=== PATIENT | female | born 1990 | race Caucasian/White ===

== ENCOUNTER 2016-07-22 06:22 | Inpatient (IN) | payer OTHER ==
[2016-07-22] MEDS ORDERED: ceFOXitin 2 GM IVPREMIX* 2 GM/50 ML BAG IVPB ONE (06:58)
[2016-07-22 07:34] LABS: Hematocrit 39 % (35-47); Mean Corpuscular HGB Conc 34 g/dl (31-36); Mean Corpuscular Hemoglobin 30 pg (27-31); Mean Corpuscular Volume 88 fL (80-97); Mean Platelet Volume 9 um3 (7.4-10.4); Red Blood Count 4.39 10^6/ul (4.0-5.4); Red Cell Distribution Width 13 % (10.5-15); White Blood Count 9.5 10^3/ul (3.5-10.8)
[2016-07-22] MEDS ORDERED: Phenylephrine IV* 40 MCG/ML 10 ML SYRINGE ONE (07:57)
[2016-07-22] MEDS ORDERED: Sodium Citrate/Citric Acid* 15 ML UDC ONE (07:58)
[2016-07-22] MEDS ORDERED: DiMENhydriNATE IV* 50 MG/ML VIAL IV PUSH PRN ×2 (08:00→12:08)
[2016-07-22] MEDS ORDERED: fentaNYL* 50 MCG/ML 2 ML VIAL (100 MCG VIAL) IV PRN (08:00)
[2016-07-22] MEDS ORDERED: Sodium Citrate/Citric Acid* 15 ML UDC PO ONE (08:00)
[2016-07-22] MEDS ORDERED: Morphine PF AMP (0.5MG/ML)* 5 MG/10 ML AMP ONE (08:03)
[2016-07-22] MEDS ORDERED: OXYTOCIN* 10 UNITS/ML 1 ML VIAL ONE ×2 (08:05→09:18)
[2016-07-22] MEDS ORDERED: Ondansetron INJ* 2 MG/ML VIAL ONE (08:05)
[2016-07-22] MEDS ORDERED: diPHENhydraMINE IV* 50 MG/ML 1 ml VIAL (BENADRYL) IV PRN (09:11)
[2016-07-22] MEDS ORDERED: Ondansetron INJ* 2 MG/ML VIAL IV PRN (09:11)
[2016-07-22] MEDS ORDERED: oxyCODONE/Acetamin 5/325 MG* TAB PO PRN (09:11)
[2016-07-22] MEDS ORDERED: Naloxone* 0.4 MG/ML 1 ML VIAL IV PRN (09:11)
[2016-07-22] MEDS ORDERED: Zolpidem TAB* 5 MG PO PRN (10:51)
[2016-07-22] MEDS ORDERED: Glycerin ADULT SUPP PR PRN (10:51)
[2016-07-22] MEDS ORDERED: Dibucaine 1% 28.35 GM TUBE PR PRN (10:51)
[2016-07-22] MEDS ORDERED: Witch Hazel PAD* JAR TOPICAL PRN (10:51)
[2016-07-22] MEDS: Ketorolac INJ* 30 MG/ML 1 ML VIAL IV PRN ×3 (11:15→23:32)
[2016-07-22] MEDS: Simethicone TAB* 80 MG TAB.CHEW PO SCH ×3 (12:30→20:20)
[2016-07-22] MEDS ORDERED: Scopolamine 1.5 mg* PATCH TRANSDERM SCH (13:00)
[2016-07-22] MEDS: Docusate CAP* 100 MG PO SCH ×2 (14:36→20:20)
[2016-07-22] MEDS ORDERED: Varicella Virus Vaccine Live* 0.5 ML VIAL SUBCUT ONE (16:00)
[2016-07-23] MEDS ORDERED: Acetaminophen TAB* 325 MG PO PRN
[2016-07-23] MEDS ORDERED: oxyCODONE/Acetamin 5/325 MG* TAB PO PRN ×2
--- NOTE | 2016-07-23 03:55 | OP ---
OPERATIVE NOTE: DATE OF OPERATION: 07/22/16 DATE OF : [birth year] SURGEON: Farzaneh Murphy MD SERGEANT OF CORRECTIONS: Eugenia Palma CNM. PRE-OP DIAGNOSES: Intrauterine gestation at 39 plus weeks gestational age, breech presentation, jesus or section, and rupture of membranes. POST-OP DIAGNOSES: Intrauterine gestation at 39 plus weeks gestational age, breech presentation, pr ior section, and rupture of membranes. OPERATIVE PROCEDURE: Repeat lower transverse section. EBL: 600. FLUIDS: Crystalloid. COMPLICATIONS: None. FINDINGS: Normal uterus, ovaries, and tubes. Male , 's of 9 and 9, weight 6 pounds 1 ou nce. Placenta with a marginal versus velamentous cord insertion. DESCRIPTION OF PROCEDURE: After the informed consent was signed, the patient was taken to the [facility] room where she was given a spinal anesthesia that was found to be adequate. She was prepped an d draped in the dorsal supine position with a leftward tilt. A time-out was then performed. Then, a Pfannenstiel skin incision was made with a scalpel and carried down to the underlying layer of fas jasper with the scalpel. The fascia was incised on either side of the midline and the incision extende d laterally with sharp and blunt dissection. The inferior edge of the fascial incision was grasped with Danish clamps, tented up, and dissected down bluntly. Then the superior edge of the fascial in cision was grasped with Danish clamps, tented up, and dissected down with sharp dissection. The rec tus muscles were in the midline and the peritoneum was entered with sharp dissection as th ere was a fair amount of scarring. Care was taken to avoid damage to the bowel or bladder during en try to the peritoneal cavity. The bladder blade was then inserted and a transverse incision was mad e in the lower uterine segment with the scalpel. Incision was extended superiorly and inferiorly wi th blunt pressure. The infant's buttocks were then delivered easily followed by the legs and the to rso. The arms were then internally rotated to be delivered and the head was delivered in a flexed po sition. The cord was milked towards the baby, then clamped x2 and cut. The baby was handed to the n eonatologist. Cord blood gases were collected. The uterus was exteriorized and the placenta was ma nually removed and appeared to be intact with the previously mentioned findings. The uterine incisi on was then closed with 0 Vicryl in a running locked fashion with a second layer of suture imbricati ng the first, with good hemostasis noted after the completion of the closure. The abdomen was irrig ated, the uterus was then placed back into the abdominal cavity. The incision was inspected once ag ain and noted to be hemostatic. The peritoneum was then closed with 3-0 chromic in a running unlock ed fashion. The fascia was closed with 0 Vicryl in a running unlocked fashion. Good hemostasis was noted in all layers prior to closure. Then the skin was closed with 4-0 Monocryl in a running subc uticular fashion. Mastisol and Steri-Strips were placed on the incision and dressing was then place d. The patient was cleaned, moved to the stretcher and taken to the recovery room in stable conditi on. All counts were correct. [id number]/[facility] #: [id number]
[2016-07-23] MEDS: Simethicone TAB* 80 MG TAB.CHEW PO SCH ×4 (08:47→19:43)
[2016-07-23] MEDS: Docusate CAP* 100 MG PO SCH ×3 (08:47→19:43)
[2016-07-23] MEDS: Ibuprofen TAB* 600 MG PO PRN ×2 (08:47→15:39)
[2016-07-23 08:55] LABS: Hematocrit 34 % (35-47); Mean Corpuscular HGB Conc 33 g/dl (31-36); Mean Corpuscular Hemoglobin 29 pg (27-31); Mean Corpuscular Volume 89 fL (80-97); Mean Platelet Volume 9 um3 (7.4-10.4); Red Cell Distribution Width 13 % (10.5-15); White Blood Count 11.9 10^3/ul (3.5-10.8)
[2016-07-24] MEDS: Simethicone TAB* 80 MG TAB.CHEW PO SCH ×4 (08:42→22:18)
[2016-07-24] MEDS: Docusate CAP* 100 MG PO SCH ×3 (08:42→22:18)
[2016-07-24] MEDS: Ibuprofen TAB* 600 MG PO PRN ×3 (08:42→22:18)
[2016-07-24] MEDS ORDERED: RHO D Immune Globulin (HUMAN)* 300 MCG = 1,500 I.U. INJ IM ONE (09:00)
[2016-07-24] MEDS: Ferrous Gluconate TAB* 324 MG TAB PO SCH ×3 (09:23→22:35)
[2016-07-24 19:50] VITALS: BP 123/73
[2016-07-25] MEDS: Ibuprofen TAB* 600 MG PO PRN ×2 (04:16→10:13)
[2016-07-25] MEDS: Docusate CAP* 100 MG PO SCH (10:13)
[2016-07-25] MEDS: Simethicone TAB* 80 MG TAB.CHEW PO SCH (10:13)
[2016-07-25] MEDS ORDERED: Scopolamine PATCH Remove* 1 NOTE MISC PATCH OFF SCH (13:00)
== END 2016-07-25 13:15 | disposition home or self-care (01) | DRG 540 ==
LOC: MCHOBOUT 06:22 → UNDOADMIN 06:59 → MCHOB 06:59 → UNDODISIN 07-25 13:15
PROVIDERS: ADMIT Obstetrics & Gynecology; ATTEND Obstetrics & Gynecology
PROC: 10D00Z1 Extraction of Products of Conception, Low, Open Approach (ICD-10-PCS; principal; 2016-07-22 08:18)
DX: O32.1XX0 Maternal care for breech presentation, not applicable or unspecified (principal); Z37.0 Single live birth; O34.211 Maternal care for low transverse scar from previous cesarean delivery; Z3A.39 39 weeks gestation of pregnancy
CPT/HCPCS: 36415; 76815; 85025; 85461; 86850; 86870; 86880; 86900; 86901; 88307; A9270-GY; J0694; J1240; J1885; J2405; J2590; J2790

== ENCOUNTER 2016-11-02 06:19 | Day surgery (SDC) | payer OTHER ==
[~2016-11-02 06:19] MED LIST: Buffered Lidocaine 0.9% SYRIN* 5 ML/SYR SYRINGE INTRADERM ONE; Famotidine IV* 10 MG/ML 2 ML (20 mg) IV ONE
[2016-11-02] MEDS ORDERED: Famotidine IV* 10 MG/ML 2 ML (20 mg) ONE (06:56)
[2016-11-02] MEDS ORDERED: Bupivacaine 0.5% W/EPI SDV* 30 ML VIAL ONE (07:24)
[2016-11-02] MEDS ORDERED: Midazolam* 1 MG/ML 5 ML VIAL (5 MG) ONE (07:47)
[2016-11-02] MEDS ORDERED: fentaNYL* 50 MCG/ML 2 ML VIAL (100 MCG VIAL) ONE ×2 (07:47→08:38)
[2016-11-02] MEDS ORDERED: Dexamethasone IV* 4 MG/ML 1 ML (4 MG) ONE (07:49)
[2016-11-02] MEDS ORDERED: Lidocaine 2% PF * 5 ML VIAL ONE (07:49)
[2016-11-02] MEDS ORDERED: Ondansetron INJ* 2 MG/ML VIAL ONE (07:49)
[2016-11-02] MEDS ORDERED: Propofol* 10 MG/ML 20 ML BTL IV PUSH ONE (07:49)
[2016-11-02] MEDS ORDERED: Succinylcholine* 20 MG/ML 10 ML VIAL ONE (07:49)
[2016-11-02] MEDS ORDERED: DiMENhydriNATE IV* 50 MG/ML VIAL ONE (07:49)
[2016-11-02] MEDS ORDERED: DiMENhydriNATE IV* 50 MG/ML VIAL IV PUSH PRN (09:07)
[2016-11-02] MEDS ORDERED: Acetaminophen TAB* 325 MG PO PRN (09:07)
[2016-11-02] MEDS ORDERED: fentaNYL* 50 MCG/ML 2 ML VIAL (100 MCG VIAL) IV PRN (09:07)
[2016-11-02] MEDS ORDERED: oxyCODONE TAB* 5 MG TAB PO PRN (09:07)
[2016-11-02] MEDS ORDERED: oxyCODONE/Acetamin 5/325 MG* TAB ONE (09:31)
[2016-11-02 10:02] VITALS: BP 119/86
--- NOTE | 2016-11-10 06:03 | OP ---
DATE OF OPERATION: 11/02/16 [facility] DATE OF : [birth year] SURGEON: Parvez Pardo MD ENGRAVING PLATE MAKER: TERRY Choi ANESTHESIOLOGIST: Bere Duenas MD ANESTHESIA: General anesthetic with endotracheal intubation. PRE-OP DIAGNOSIS: Multiparity, the patient desires permanent surgical sterilization. POST-OP DIAGNOSIS: Multiparity, the patient desires permanent surgical sterilization. OPERATIVE PROCEDURE: Bilateral laparoscopic tubal ligation with Filshie clips. ESTIMATED BLOOD LOSS: None. SPECIMENS SENT TO PATHOLOGY: None. IV FLUIDS: She received 800 cc of IV crystalloid fluid. URINE OUTPUT: Clear. FINDINGS: The patient was noted laparoscopically to have a normal uterus, ovaries, and tubes bilaterally with normal bowel and bladder and there were no complications. DESCRIPTION OF PROCEDURE: The patient was taken to the operating room where she was identified. She was placed on the operating room table where general anesthetic with endotracheal intubation was obtained without difficulty. She was then placed in the dorsal lithotomy position, prepped and draped in a normal sterile fashion. Attention was then brought on to the patient's perineum where the bladder was catheterized with a Nieves catheter and drained of clear urine. A speculum was then inserted into the patient's vagina. The cervix was identified, grasped with a single-tooth tenaculum and through the cervix a uterine manipulator was introduced, a ClearView manipulator. The balloon and the manipulator were insufflated with 4 cc of normal saline and single-tooth tenaculum was then removed as well as speculum and the uterine manipulator was left in place. Attention was then brought on to the patient's abdomen where a 1 cm infraumbilical skin incision was made with a knife and carried through to the underlying layer of fascia. The fascia was then grasped with the Danish clamps, brought up through the incision, incised with a knife and entry into the peritoneum was then confirmed using a Corazon clamp and its retractors under direct visualization. At this point, 0 Polysorb sutures were used to replace the Danish clamps on the fascia. Through this incision, a 10- mm trocar was introduced. The balloon and the trocar were then insufflated with air. The patient's abdomen was again insufflated with CO2 gas. A second laparoscope was then introduced 4 cm above the symphysis pubis under direct visualization. A survey of the patient's pelvic anatomy revealed findings as noted above. At this point, a bilateral tubal ligation was performed using Filshie clips in the ampullary portion of the fallopian tubes bilaterally. There was good application of the Filshie clip site and Filshie clips completely surrounded the fallopian tubes at the site of application. At this point, there was no bleeding. The Filshie clip applicator was removed from the patient's abdomen as well as the pubic trocar under direct visualization. The trocar on the patient's umbilicus was removed as well. Gas from the patient's abdomen was also removed. The umbilical incision of the fascia was closed with 0 Polysorb suture in a running fashion and skin incision at the umbilicus and suprapubic incision were closed with 4-0 subcuticular stitch. All the instruments were also removed from the patient's vagina. Sponge, lap, and needle counts were correct x2. She was then transferred to the recovery room area in stable condition. [id number]/[facility] [facility] #: [id number] ANDREE
== END 2016-11-02 10:20 | disposition home or self-care (01) ==
LOC: OR 06:19
PROVIDERS: ATTEND Obstetrics & Gynecology
DX: Z30.2 Encounter for sterilization (principal); Z87.891 Personal history of nicotine dependence
CPT/HCPCS: 36415; 86703; A9270-GY; C1776; J0330; J1100; J1240; J2250; J2405; J2704; J3010

== ENCOUNTER 2018-10-03 09:34 | Emergency (ER) | payer SELFPAY ==
[2018-10-03] MEDS ORDERED: HYDROcodone/ACETAMIN 5-325 MG* 1 TAB PO ONE (10:10)
--- NOTE | 2018-10-03 10:19 | ED ---
Lower Extremity - HPI Summary HPI Summary: 27-year-old female presents with right foot pain since last night. She states that he twisted her foot going down stairs. States she cannot place any weight on the area. She denies any numbness or tinlgin. Has edema noted to her right foot. Neurovascular intact. she has no medical conditions. - History of Current Complaint Chief Complaint: EDExtremityLower Stated Complaint: RT FOOT INJURY PER PT Time Seen by Provider: 10/03/18 09:48 Pain Intensity: 10 - Allergies/Home Medications Allergies/Adverse Reactions: Allergies Allergy/AdvReac Type Severity Reaction Status Date / Time No Known Allergies Allergy Verified 10/03/18 09:38 PMH/Surg Hx/FS Hx/Imm Hx Endocrine/Hematology History: Denies: Hx Anticoagulant Therapy Cardiovascular History: Denies: Hx Hypertension Sensory History: Denies: Hx Contacts or Glasses, Hx Hearing Aid Opthamlomology History: Denies: Hx Contacts or Glasses - Surgical History Surgery Procedure, Year, and Place: 2 [id number] AND 2016 Hx Anesthesia Reactions: No Infectious Disease History: No Infectious Disease History: Denies: Traveled Outside the [place] in Last 30 Days - Family History Known Family History: Negative: Cardiac Disease - Social History Alcohol Use: None Hx Substance Use: No Substance Use Type: Reports: None Hx Tobacco Use: No Smoking Status (MU): Never Smoked Tobacco Amount Used/How Often: 6 CIGARETTES PER DAY X 5 YEARS Have You Smoked in the Last Year: No Review of Systems Negative: Fever Negative: Chest Pain Negative: Shortness Of Breath Positive: Myalgia - right foot pain All Other Systems Reviewed And Are Negative: Yes Physical Exam Triage Information Reviewed: Yes Vital Signs On Initial Exam: Initial Vitals Temp Pulse Resp BP Pulse Ox 98.2 F 108 19 115/75 98 10/03/18 09:35 10/03/18 09:35 10/03/18 09:35 10/03/18 09:35 10/03/18 09:35 Vital Signs Reviewed: Yes Appearance: Positive: Well-Appearing Skin: Positive: Warm, Dry Head/Face: Positive: Normal Head/Face Inspection Eyes: Positive: Normal, Conjunctiva Clear ENT: Positive: Pharynx normal Respiratory/Lung Sounds: Positive: Clear to Auscultation, Breath Sounds Present Cardiovascular: Positive: Normal, RRR Musculoskeletal: Positive: Limited @ - right foot, Other - tenderness metacarpel 5th, good pulses, ecchymosis to right foot Neurological: Positive: Normal Psychiatric: Positive: Normal Procedures - Splinting foot Location: right foot Hand-Made Type: orthoglass Splint: posterior walking Pre-Proc Neuro Vasc Exam: normal Post-Proc Neuro Vasc Exam: normal Diagnostics - Vital Signs Vital Signs Temp Pulse Resp BP Pulse Ox 10/03/18 09:35 98.2 F 108 19 115/75 98 - Laboratory Lab Statement: Any lab studies that have been ordered have been reviewed, and results considered in the medical decision making process. - Radiology foot Radiology Interpretation Completed By: Radiologist Summary of Radiographic Findings: IMPRESSION: Spiral fracture midshaft of the fifth metatarsal. Lower Extremity Course/Dx - Course Course Of Treatment: 27-year-old female presents with right foot pain since last night. She states that he twisted her foot going down stairs. States she cannot place any weight on the area. She denies any numbness or tinlgin. Has edema noted to her right foot. Neurovascular intact. she has no medical conditions. On exam tenderness over fifth metatarsal of the right foot. Neurovascular intact. Has ecchymosis to the area. X-ray shows metatarsal fracture. Placed in posterior long splint. gave crutches. Told to follow-up with orthopedic. Patient understands agrees with plan. - Diagnoses Differential Diagnosis/HQI/PQRI: Positive: Fracture (Closed), Sprain, Strain Provider Diagnoses: Foot fracture, right Discharge - Sign-Out/Discharge Documenting (check all that apply): Patient Departure Patient Received Moderate/Deep Sedation with Procedure: No - Discharge Plan Condition: Good Disposition: HOME Prescriptions: HYDROcodone/ACETAMIN 5-325 MG* [[place] 5-325 TAB*] 1 tab PO Q6H PRN #12 tab MDD 4 PRN Reason: Pain Patient Education Materials: Foot Fracture in Adults (ED) Forms: *Work Release Referrals: Barak Pardo MD [Primary Care Provider] - Panfilo Velazquez MD [Medical Doctor] - Additional Instructions: Use crutches and stay nonweight bearing Keep splint on area and keep dry Call ortho office tomorrow to set up appointment for follow up Use ibuprofen for pain every 6 hours and use narcotic for breakthrough pain Ice, elevate Return to ED if develop any new or worsening symptoms - Billing Disposition and Condition Condition: GOOD Disposition: Home - Attestation Statements Provider Attestation: I was available for consult. This patient was seen by the BRISSA. The patient was not presented to, seen by, or examined by me. -Isabel
[2018-10-03 12:35] VITALS: BP 116/80
== END 2018-10-03 10:45 | disposition home or self-care (01) ==
LOC: ED 09:34
DX: S92.351A Displaced fracture of fifth metatarsal bone, right foot, initial encounter for closed fracture (principal); X50.9XXA Other and unspecified overexertion or strenuous movements or postures, initial encounter; Z87.891 Personal history of nicotine dependence
CPT/HCPCS: 99282